=== PATIENT | female | born 1960 | race Caucasian/White ===

== ENCOUNTER 2017-01-30 08:55 | Day surgery (SDC) | payer OTHER ==
[2017-01-28 15:32] VITALS: BP 120/79
[~2017-01-30] VITALS: Ht 172.7 cm; Wt 75.0 kg
[~2017-01-30 08:55] MED LIST: LEVO25TA4 PO
[2017-01-30] MEDS ORDERED: LACTATED RINGERS 1,000 ML IV SCH ×3 (09:02→19:00)
[2017-01-30 09:39] LABS: HCG UR LOT HCG7030192
[2017-01-30 09:43] LABS: HCG UR OBC PASS
[2017-01-30] MEDS ORDERED: LIDOCAINE 1%, 2ML SQ PRN (10:00)
[2017-01-30] MEDS ORDERED: BUPIVACAINE/PF-EPI 0.5% 1:200K INFIL ONE (16:48)
[2017-01-30] MEDS ORDERED: ISOSULFAN BLUE 10 MG/ML, 5ML IV ONE (16:48)
[2017-01-30] MEDS ORDERED: HYDROmorphone 1 MG/ML, 1ML IV PRN (17:30)
[2017-01-30] MEDS ORDERED: LABETALOL 5MG/ML, 20ML IV PRN (17:30)
[2017-01-30] MEDS ORDERED: MEPERIDINE/PF 25MG/0.5ML IVPush PRN (17:30)
[2017-01-30] MEDS ORDERED: FENTANYL PF 100 MCG/2ML IV PRN (17:30)
[2017-01-30] MEDS ORDERED: ACETAMINOPHEN 325 MG TABLET PO PRN (17:30)
[2017-01-30] MEDS ORDERED: ALBUTEROL SULFATE 2.5 MG/3 ML NPPB PRN (17:30)
[2017-01-30] MEDS ORDERED: MIDAZOLAM 1 MG/ML, 2ML IV PRN (17:30)
[2017-01-30] MEDS ORDERED: hydrALAzine 20 MG/ML, 1ML IV PRN (17:30)
[2017-01-30] MEDS ORDERED: OXYcodone 5 MG/5 ML ORAL.SOL UDC PO PRN (17:30)
[2017-01-30] MEDS ORDERED: ONDANSETRON 2MG/ML, 2ML IVPush PRN ×2 (17:30→19:00)
[2017-01-30] MEDS ORDERED: PROMETHAZINE 25 MG/ML, 1ML IV PRN (17:30)
[2017-01-30] MEDS ORDERED: MORPHINE SULFATE 4 MG/ML, 1ML IVPush PRN (19:00)
[2017-01-30] MEDS ORDERED: OXYcodone/APAP 5/325MG TABLET PO PRN (19:00)
[2017-01-30] MEDS ORDERED: OXYC-302 PO (20:25)
[2017-01-30 20:59] VITALS: BP 112/70
== END 2017-01-30 20:45 | disposition home or self-care (01) ==
LOC: OUT 08:55 → 4NOR 18:30 → OUT 20:45
PROVIDERS: ATTEND Surgery
DX: C51.9 Malignant neoplasm of vulva, unspecified (principal); Z88.5 Allergy status to narcotic agent; E03.9 Hypothyroidism, unspecified
CPT/HCPCS: 11626; 38500; 78195; 81025; 88305; 88307; 88333; A9541; C1729; J0171; J0690; J1100; J1885; J2250; J2370; J2405; J2704; J2710; J3490